=== PATIENT | female | born 1980 | race Caucasian/White ===

== ENCOUNTER 2022-10-04 12:49 | Day surgery (SDC) | payer OTHER, SELFPAY ==
[2022-10-04] MEDS: Lactated Ringers 1,000 ML 15 ML IV (12:50)
[2022-10-04 13:05] VITALS: BP 122/74; PULSE 69; RESP 16; TEMP 37.3; O2SAT 100; BMI 26.9
--- NOTE | 2022-10-04 13:11 | PCM.HP.BLA ---
History and Physical Date of Admission: 10/04/22 Chief complaint: Bartholin's gland cyst History present illness: 42-year-old arrives with Bartholin's gland elects for Bartholin's gland excision. No medical changes since last seen. All questions answered and consent signed. Obstetric history: with a history of 2 sections Past medical history: GERD, anxiety depression Medications: Alprazolam, BuSpar, Wellbutrin, omeprazole Past surgical history: section, uterine ablation, hysterectomy, cholecystectomy, carpal tunnel surgery Allergies: No known drug allergies Family history: Denies history DVT or PE Social history: Denies smoking, alcohol use, drug use Review of systems: Besides above pertinent positives a full review of systems was performed and found to be negative Physical exam: Vitals: Blood pressure 122/74 pulse 69 respiratory rate 16 temperature 99.2 ?F SPO2 100% on room air General: Normal-appearing no acute distress HEENT: Normocephalic/atraumatic no cervical lymphadenopathy Cardiac/respiratory: No use of accessory muscles, nonlabored breathing Abdomen: Soft, nontender, nondistended Extremities: No peripheral edema normal peripheral pulses Psych: Normal affect and demeanor nonpressured speech Assessment and plan: 42-year-old elects for Bartholin's gland excision. Patient understands risk of the procedure include but are not limited to visceral or vascular injury, prolonged hospitalization, blood loss and need for transfusion, reoperation. Patient state understanding and wished to proceed. All questions were answered and consent was signed.
[2022-10-04] MEDS: Cefotetan 2 GM in 0.9% NS 100 ML IV (13:34)
[2022-10-04] MEDS: Bupiv/Epi 0.25% 30 ML Vial (13:44)
--- NOTE | 2022-10-04 14:00 | BAR_PTH ---
PATIENT: YNES AGUIRRE LOC: [facility] U#:[id number] AGE/SX: 42/F ROOM: RE10/04/[address]: Dr. Soren Benitez MD : 1980 BED: DIS: 10/04/2022 SPEC #: [id number] RECD: 10/04/22 15:05 STATUS: LORENA JULIA #: [id number] APRIL: 10/04/22 14:[address]: Soren Benitez DEPT: SURGICAL PATHOLOGY RECD BY: Umu Rees ENTERED: 10/05/22 07:20 SP TYPE: SARAI CYST OTHR DR: Desiree Red, FILEN[employer] P[employer] DEVELOPER-C Tissues: Bartholin's gland cyst Procedures: Surgery Specimen Level III HEADER OPERATION: Bartholin gland excision PRE-OP DIAGNOSIS: Bartholin?s gland cyst TISSUE SUBMITTED: Left Bartholin gland cyst MICROSCOPIC DIAGNOSIS Left Bartholin gland cyst, excision: Consistent with inflamed Bartholin?s gland cyst. AM:pennie 10/06/2022 MICROSCOPIC DESCRIPTION Slides are reviewed. GROSS DESCRIPTION Received in fixative is one container labeled with the patient's name and designated left Bartholin gland cyst. The specimen consists of a previously opened cyst measuring 3.0 x 1.5 x 0.5 cm. No cyst contents are identified. The outer surface of cyst is inked black. The specimen is serially sectioned and submitted entirely in two cassettes. / SJ:pennie 10/05/2022 TC:5 CPT: 65032
--- NOTE | 2022-10-04 14:10 | PCM.DC ---
Discharge Instructions Diet Discharge Diet: No restrictions Activity Discharge Activity: Return to Normal Activity, May Drive and May Shower May resume sexual activity in: 4-6 weeks Weight Bearing Status: Weight bearing as tolerated Dressing / Incision Call your doctor if your incision/area has: Continuous Slow Oozing and Foul Smelling Discharge Call your doctor if you observe: Fever of 101 or Higher, Shortness of breath and Chest pain Follow Up Care Please Follow Up With: Soren Benitez MD When: 2 weeks postoperatively Test Results: Test results from this visit will be discussed in further detail at your follow-up appointment, if applicable. Discharge Plan Admission Attending Provider: Soren Benitez Primary Care Provider: Desiree Red NP Discharge Orders/Prescriptions Prescriptions: New oxycodone 5 mg Tablet 5 mg PO Q6H PRN (Reason: pain (scale score 7-10)) 3 Days Qty: 10 0RF Continued omeprazole 40 mg capsule,delayed release(DR/EC) 40 mg PO DAILY lorazepam 1 mg tablet 1 mg PO PRN PRN (Reason: Anxiety) buspirone 15 mg tablet 15 mg PO BID bupropion HCl 150 mg tablet extended release 24 hr 450 mg PO DAILY Referrals / Follow Up: Desiree Red [employer]ER, [employer] [Primary Care Provider] - Disposition Disposition (needs filled in before D/C Order can be placed): Home, Self Care
[2022-10-04 14:15] VITALS: BP 118/82; BP 122/74; PULSE 68; RESP 18; TEMP 36.7; O2SAT 100
--- NOTE | 2022-10-04 14:16 | OP.PCM_ITS ---
Report of Operation Date of Procedure: 10/04/22 Pre-Operative Diagnosis: Bartholin's gland cyst Post-Operative Diagnosis: Bartholin's gland cyst Surgery/Procedure Performed:: Excision of Bartholin's gland cyst Description of Surgical Findings:: Surgeon: Soren Benitez MD Anesthesia: MAC EBL: 10 cc Output: 10 cc IV fluids: 500 cc Complications: None Specimen: Left Bartholin's gland cyst Findings: Left Bartholin's gland cyst 5 cm in size. Drained serosanguineous fluid. Floseal placed at site of Bartholin's gland incision. Consent: Patient with Bartholin's gland cyst elects for Bartholin's gland excision. Patient understands risk of the procedure include but are not limited to visceral or vascular injury, prolonged hospitalization, blood loss need for transfusion, reoperation. Patient state understanding wish to proceed. All que stions were answered and consent was signed. Procedure: Patient brought back to the OR where MAC anesthesia was found to be adequate. 0.25% Marcaine was injected at operative site. Using Allis clamps and an 11 blade dissection of Bartholin's gland cyst was performed. Incision was made in left vaginal mucosa sidewall. Cyst wall was carefully dissected and Bartholin's gland cyst and cyst wall were removed and sent to pathology. Overall good hemostasis was noted. Floseal was inserted at site of previous Bartholin's gland. Excision site was closed in multiple layers with 3-0 Vicryl suture. Good hemostasis was noted. Interrupted 3-0 Vicryl sutures were used to reapproximate vaginal mucosa. Good hemostasis was noted. All counts were correct x2. Patient tolerated procedure well and was brought to recovery in stable condition.
[2022-10-04 14:30] VITALS: BP 104/63; BP 122/74; PULSE 62; RESP 18; O2SAT 98
[2022-10-04] MEDS: Ketorolac 30 MG/ML Syringe IV (14:33)
[2022-10-04 14:46] VITALS: BP 102/64; BP 122/74; PULSE 70; RESP 18; TEMP 37.2; O2SAT 99
[2022-10-04 15:03] VITALS: BP 122/74
== END 2022-10-04 15:33 | disposition home or self-care (01) ==
LOC: SDC 12:51 → AC 12:53
PROVIDERS: PCP Nurse Practitioner Family; Referring Provider Obstetrics & Gynecology; Visit Provider Obstetrics & Gynecology
PROC: (CPT 56740; principal; 2022-10-04 13:45)
DX: N75.0 Cyst of Bartholin's gland (principal); K21.9 Gastro-esophageal reflux disease without esophagitis; F32.A Depression, unspecified; F41.9 Anxiety disorder, unspecified; Z90.710 Acquired absence of both cervix and uterus; Z79.899 Other long term (current) drug therapy
CPT/HCPCS: 56740; 00940; 88304; J7120; J2405